=== PATIENT | male | born 1940 | race Caucasian/White ===

== ENCOUNTER 2018-11-18 15:27 | Outpatient (CLI) | payer BC, OTHER ==
[~2018-11-18 15:27] MED LIST: ARIMIDEX1 MG ORAL; ASPIR 8181 MG ORAL; CIPRO500 MG/51 PO; LEVOTHYROXINE25 MCG ORAL; LEXAPRO10 MG ORAL; LISINOPRIL2.5 MG ORAL; PROTONIX40 MG ORAL; TESTOSTERONE5 G1; UNKNOWN MEDICATION
--- NOTE | 2018-11-18 16:53 | Diagnostic Imaging Report ---
Indication: Lower back pain Technique: 4 views of the lumbar spine Comparison: None Findings: There is a wedge compression fracture deformity of the L1 vertebral body. This is also an approximately 40% loss of height anteriorly. Acuity of this is indeterminate, although it is not visible on a CT of the chest dated 12/14/2011. The remaining vertebral body heights are preserved. The bony alignment is normal. There is severe degenerative disc narrowing of the L5-S1 disc. The remaining disc spaces are preserved. No other acute fractures. No dislocations. The pedicles are intact. Sacral arches are preserved. Sacroiliac joint spaces are preserved. There is a right hip prosthesis. There is mild degenerative arthrosis of the bilateral L4-5 and L5-S1 facets. Impression: L1 wedge compression fracture deformity. Age is indeterminate. Consider MRI for better characterization of age if clinically indicated and if patient is a candidate for intervention Degenerative changes, as described Other findings as noted
== END 2018-11-18 17:27 | disposition home or self-care (01) ==
LOC: RAD 15:27
DX: M25.552 Pain in left hip (principal); M48.56XA Collapsed vertebra, not elsewhere classified, lumbar region, initial encounter for fracture; Z96.641 Presence of right artificial hip joint
CPT/HCPCS: 72110

== ENCOUNTER 2018-12-24 15:18 | Emergency (ER) | payer MEDICARE, OTHER ==
[~2018-12-24] VITALS: Ht 180.3 cm; Wt 90.7 kg
[2018-12-24] MEDS ORDERED: COUMADIN2.5 MG ORAL (15:35)
[2018-12-24] MEDS ORDERED: WELLBUTRIN XL150 M1 ORAL (15:35)
[2018-12-24 15:36] VITALS: BP 115/68
--- NOTE | 2018-12-24 15:36 | NUR ---
ED Nurse Note: Pt from home came in due to an brasion on his head. Pt stated that he bumped his head into a bed frame on his garage. Denies LOC. pt is AAO x4, ambulatory with unlabored breathing.
--- NOTE | 2018-12-24 15:45 | NUR ---
ED Nurse Note: Collectd blood and sent.
[2018-12-24 16:12] LABS: BASOPHILS % (AUTO) 0.8 % (0.0-2.0); EOSINOPHILS % (AUTO) 4.1 % (0.0-3.0); HEMATOCRIT 46.7 % (42.0-52.0); HEMOGLOBIN 16.2 G/DL (14.2-18.0); LYMPHOCYTES % (AUTO) 31.5 % (20.0-45.0); MEAN CORPUSCULAR VOLUME 90 FL (80-99); MONOCYTES % (AUTO) 11.4 % (1.0-10.0); NEUTROPHILS % (AUTO) 52.2 % (45.0-75.0); PLATELET COUNT 191 K/UL (150-450); RED CELL DISTRIBUTION WIDTH 12.5 % (11.6-14.8); WHITE BLOOD COUNT 6.8 K/UL (4.8-10.8)
[2018-12-24 16:21] LABS: ALANINE AMINOTRANSFERASE 71 U/L (12-78); ALBUMIN 3.6 G/DL (3.4-5.0); ALBUMIN/GLOBULIN RATIO 0.9 (1.0-2.7); ALKALINE PHOSPHATASE 138 U/L (46-116); ANION GAP 10 mmol/L (5-15); ASPARTATE AMINO TRANSFERASE 54 U/L (15-37); BILIRUBIN,TOTAL 0.6 MG/DL (0.2-1.0); CARBON DIOXIDE 25 MMOL/L (21-32); CHLORIDE 105 MMOL/L (98-107); CREATINE KINASE 571 U/L (26-308); POTASSIUM 4.1 MMOL/L (3.5-5.1); SODIUM 140 MMOL/L (136-145)
--- NOTE | 2018-12-24 16:43 | Diagnostic Imaging Report ---
Indications: Head trauma, abrasion on head Technique: Spiral acquisitions obtained through the brain. Angled axial and coronal 5 x 5 mm slices were reconstructed. Total dose length product 1456.29 mGycm. CTDI vol(s) 70.38 mGy. Dose reduction achieved using automated exposure control Comparison: None. Findings: No acute intercranial hemorrhage nor edema, mass effect, nor midline shift. Normal serna-white differentiation. Normal-sized ventricles and extra axial CSF spaces. There is minimal periventricular deep white matter low-attenuation, consistent with chronic deep white matter ischemic change. There is left maxillary and ethmoid sinus disease and sphenoid sinus disease. The visualized orbits are unremarkable. The mastoids are clear. The calvarium is intact Impression: . No acute intracranial bleed or mass effect Incidental finding of sinus disease, as described The CT scanner at [facility] is accredited by the [employer] and the scans are performed using protocols designed to limit radiation exposure to as low as reasonably achievable to attain images of sufficient resolution adequate for diagnostic evaluation.
[2018-12-24 16:50] LABS: BLOOD UREA NITROGEN 28 mg/dL (7-18); CALCIUM 9.4 MG/DL (8.5-10.1); CKMB 13.4 NG/ML (0.0-3.6); CREATININE 1.4 MG/DL (0.55-1.30)
--- NOTE | 2018-12-24 17:02 | Emergency Room Report ---
History of Present Illness General Chief Complaint: Laceration Source: Patient Present Illness HPI Patient presents with complaints of trauma to the top parietal region of the scalp Patient reports that this was fairly mechanical injury hitting the head on a cabinet door Denies any obvious lapse of consciousness Denies any chest pain or shortness of breath Denies any neck pain Denies any focal weakness patient reports that he had injured his low back recently and has been less mobile Allergies: Coded Allergies: No Known Allergies (Verified , 12/14/11) Uncoded Allergies: POLLEN (Allergy, Unknown, 12/14/11) RAGWEED (Allergy, Unknown, 12/14/11) Patient History Past Medical History: see triage record Pertinent Family History: none Reviewed Nursing Documentation: PMH: Agreed; PSxH: Agreed Nursing Documentation-PMH Hx Cardiac Problems: Yes Hx Hypertension: Yes Hx Diabetes: No - HYPOTHYROIDISM Hx Cancer: No Hx Gastrointestinal Problems: No Hx Neurological Problems: Yes Hx Transient Ischemic Attacks: Yes - over a week ago Hx Numbness: Yes Hx Weakness: Yes Review of Systems All Other Systems: negative except mentioned in HPI Physical Exam Vital Signs Date Time Temp Pulse Resp B/P (MAP) Pulse Ox O2 Delivery O2 Flow Rate FiO2 12/24/18 15:26 98.6 95 16 103/65 92 Room Air Sp02 EP Interpretation: reviewed, normal General Appearance: well appearing, no apparent distress Head: normocephalic, other - Healed scab formation approximately 1cm top parietal region Eyes: bilateral eye PERRL, bilateral eye EOMI ENT: hearing grossly normal, normal pharynx, TMs + canals normal, uvula midline Neck: full range of motion, supple, no meningismus, no bony tend Respiratory: lungs clear, normal breath sounds, no rhonchi, no respiratory distress, no retraction, no accessory muscle use Cardiovascular #1: normal peripheral pulses, regular rate, rhythm, no gallop, no JVD, no murmur Gastrointestinal: normal bowel sounds, non tender, soft, no mass, no organomegaly, non-distended, no guarding, no hernia, no pulsatile mass, no rebound Genitourinary: no CVA tenderness Musculoskeletal: other - Ambulatory no obvious focal weakness Neurologic: oriented x3, responsive, campaign associate III-XII nml as tested, motor strength/ tone normal, sensory intact Psychiatric: mood/affect normal Skin: normal color, other - Edema bilaterally Lymphatic: normal inspection, no adenopathy Medical Decision Making Diagnostic Impression: Primary Impression: Syncope ER Course Patient is a fairly complex patient with multiple differential to consideration including but not limited to cardiac cardiopulmonary and vascular emergencies Patient CT head does not show any acute disease Blood work reveals elevated total CK Also CK-MB was elevated Patient's kidney function also shows some elevation With the patient's edema fall there is question of possible syncopal episode and patient requires admission Secondary to insurance purposes patient is requested for transfer Dr. Patel who had contacted us initially was also notified Labs Test 12/24/18 15:45 White Blood Count 6.8 K/UL (4.8-10.8) Red Blood Count 5.20 M/UL (4.70-6.10) Hemoglobin 16.2 G/DL (14.2-18.0) Hematocrit 46.7 % (42.0-52.0) Mean Corpuscular Volume 90 FL (80-99) Mean Corpuscular Hemoglobin 31.1 PG (27.0-31.0) Mean Corpuscular Hemoglobin Concent 34.7 G/DL (32.0-36.0) Red Cell Distribution Width 12.5 % (11.6-14.8) Platelet Count 191 K/UL (150-450) Mean Platelet Volume 6.1 FL (6.5-10.1) Neutrophils (%) (Auto) 52.2 % (45.0-75.0) Lymphocytes (%) (Auto) 31.5 % (20.0-45.0) Monocytes (%) (Auto) 11.4 % (1.0-10.0) Eosinophils (%) (Auto) 4.1 % (0.0-3.0) Basophils (%) (Auto) 0.8 % (0.0-2.0) Prothrombin Time 10.5 SEC (9.30-11.50) Prothromb Time International Ratio 1.0 (0.9-1.1) Activated Partial Thromboplast Time 30 SEC (23-33) Sodium Level 140 MMOL/L (136-145) Potassium Level 4.1 MMOL/L (3.5-5.1) Chloride Level 105 MMOL/L (98-107) Carbon Dioxide Level 25 MMOL/L (21-32) Anion Gap 10 mmol/L (5-15) Blood Urea Nitrogen 28 mg/dL (7-18) Creatinine 1.4 MG/DL (0.55-1.30) Estimat Glomerular Filtration Rate mL/min (>60) Glucose Level 85 MG/DL (74-106) Calcium Level 9.4 MG/DL (8.5-10.1) Total Bilirubin 0.6 MG/DL (0.2-1.0) Aspartate Amino Transf (AST/SGOT) 54 U/L (15-37) Alanine Aminotransferase (ALT/SGPT) 71 U/L (12-78) Alkaline Phosphatase 138 U/L (46-116) Total Creatine Kinase 571 U/L (26-308) Creatine Kinase MB 13.4 NG/ML (0.0-3.6) Creatine Kinase MB Relative Index 2.3 Troponin I 0.014 ng/mL (0.000-0.056) Total Protein 7.8 G/DL (6.4-8.2) Albumin 3.6 G/DL (3.4-5.0) Globulin 4.2 g/dL Albumin/Globulin Ratio 0.9 (1.0-2.7) EKG Diagnostic Results Rate: normal Rhythm: NSR ST Segments: no acute changes Rhythm Strip Diag. Results EP Interpretation: yes Rate: 66 Rhythm: NSR, no PVC's, no ectopy CT/MRI/US Diagnostic Results CT/MRI/US Diagnostic Results : Impression CT head no acute disease Last Vital Signs Date Time Temp Pulse Resp B/P (MAP) Pulse Ox O2 Delivery O2 Flow Rate FiO2 12/24/18 15:26 98.6 95 16 103/65 92 Room Air Status: improved [facility] Condition: Serious Referrals: JUHI THAYER (PCP) Aster Razo DO Dec 24, 2018 17:02
[2018-12-24 17:20] VITALS: BP 125/80
--- NOTE | 2018-12-24 17:55 | NUR ---
ED Nurse Note: Dr Razo at the bed side informing of pt regarding his admission. Noted bilateral swelling of feet.
[2018-12-24] MEDS ORDERED: CYMBALTA30 MG ORAL (18:09)
[2018-12-24] MEDS ORDERED: TESTOSTERO200 MG/12 IM (18:09)
[2018-12-24] MEDS ORDERED: ABILIFY2 MG ORAL (18:09)
[2018-12-24] MEDS ORDERED: CYANOCOBAL1000 MCG/2 IJ (18:09)
[2018-12-24] MEDS ORDERED: CYMBALTA60 MG ORAL (18:09)
--- NOTE | 2018-12-24 19:10 | NUR ---
HAND-OFF: Report given to Kota Arana RN.
[2018-12-24 19:49] VITALS: BP 143/68
[2018-12-24 21:26] VITALS: BP 143/68
--- NOTE | 2018-12-24 21:26 | NUR ---
ED Nurse Note: Report given to PREET Muniz of [facility]. Patient to be admitted to [facility] under the care of MD Zeynep. Report given to [facility].
== END 2018-12-24 21:26 | disposition short-term general hospital (02) ==
LOC: EMR 16:21
DX: R55 Syncope and collapse (principal); S09.90XA Unspecified injury of head, initial encounter; W19.XXXA Unspecified fall, initial encounter; Y92.9 Unspecified place or not applicable; Z91.048 Other nonmedicinal substance allergy status; I10 Essential (primary) hypertension; Z86.73 Personal history of transient ischemic attack (TIA), and cerebral infarction without residual deficits; E03.9 Hypothyroidism, unspecified; J32.0 Chronic maxillary sinusitis; J32.2 Chronic ethmoidal sinusitis
CPT/HCPCS: 36415; 70450; 80053; 82550; 82553; 84484; 85025; 85610; 85730; 93005; 99284